=== PATIENT | male | born 1965 | race Caucasian/White ===

== ENCOUNTER 2017-08-31 13:06 | Emergency (ER) | payer OTHER ==
[~2017-08-31] VITALS: Ht 188 cm; Wt 70.0 kg
[2017-08-31 13:22] VITALS: BP 183/97; PULSE 54; RESP 18; TEMP 97.8; O2SAT 99
--- NOTE | 2017-08-31 13:23 | PD ---
HPI Chief Complaint: Right eye injury Time Seen by Provider: 13:18 Travel History International Travel<30 days: No Contact w/Intl Traveler<30days: No Traveled to known affect area: No History of Present Illness HPI The patient is a 52-year-old male who presents to the emergency department as a transfer from [facility] for an injury to the right eye. The patient states he accidentally received an injury to the right eye using a nail gun earlier today. The nail went through the lower lid, under his sunglasses, and struck his eye. The patient complains of difficulty with vision out of the right eye, states he can see light, but has difficulty seeing specific objects or details. The patient was seen at [facility] where he states he had a tetanus shot, antibiotics, and morphine. The patient was then transferred to [facility] to be evaluated by Dr. Newby, the suede cleaner. The patient denies any chronic medical problems, surgeries , medications, or allergies. He does smoke cigarettes. [facility] Past Medical History Medical History: Denies Significant Hx Past Surgical History Surgical History: No Previous Surgery Social History Tobacco Use: Yes Allergies-Medications (Allergen,Severity, Reaction): Coded Allergies: No Known Allergies (Unverified , 08/31/17) Review of Systems Except as stated in HPI: all other systems reviewed are Neg Eyes: Positive: Blurred Vision, Pain HENT: No: Headaches Cardiovascular: No: Chest Pain or Discomfort Respiratory: No: Shortness of Breath Gastrointestinal: No: Nausea, Abdominal Pain Neurologic: No: Weakness, Dizziness, Focal Abnormalities Physical Exam Narrative GENERAL: Awake, alert, pleasant 52-year-old male who appears his stated age and is in no acute respiratory distress. SKIN: Focused skin assessment warm/dry. HEAD: Atraumatic. Normocephalic. EYES: The right pupil slightly oblong, appears to slowly react to light. He states he can see light from the right eye, but cannot count fingers from the right eye. EOMs appear intact. He does have a small contusion and puncture wound to the inferior lid. ENT: No nasal bleeding or discharge. Mucous membranes pink and moist. NECK: Trachea midline. No JVD. CARDIOVASCULAR: Regular rate and rhythm. No murmur appreciated. RESPIRATORY: No accessory muscle use. Clear to auscultation. Breath sounds equal bilaterally. GASTROINTESTINAL: Abdomen soft, non-tender, nondistended. MUSCULOSKELETAL: No obvious deformities. No clubbing. No cyanosis. No edema. NEUROLOGICAL: Awake and alert. No obvious cranial nerve deficits. Motor grossly within normal limits. Normal speech. PSYCHIATRIC: Appropriate mood and affect; insight and judgment normal. Data Data Last Documented VS Vital Signs Date Time Temp Pulse Resp B/P (MAP) Pulse Ox O2 Delivery O2 Flow Rate FiO2 08/31/17 13:22 97.8 54 18 183/97 (125) 99 Orders Orders NPO (08/31/17 13:19) Complete Blood Count With Diff (08/31/17 13:19) Basic Metabolic Panel (Bmp) (08/31/17 13:19) Act Partial Throm Time (Ptt) (08/31/17 13:19) Prothrombin Time / Inr (Pt) (08/31/17 13:19) Sodium Chlor 0.9% 1000 Ml Inj (Ns 1000 M (08/31/17 13:30) Nicotine 21 Mg Patch.24 Hr (Habitrol 21 (08/31/17 13:30) Proparacaine 0.5% Opth Soln (Alcaine 0.5 (08/31/17 13:30) Electrocardiogram (08/31/17 ) Morphine Inj (Morphine Inj) (08/31/17 14:30) Cefazolin Inj (Ancef Inj) (08/31/17 17:18) Balanced Salt Opth Soln (Bss Opth Soln) (08/31/17 17:18) Dexamethasone Inj (Decadron Inj) (08/31/17 17:18) Tobramycin-Dexameth Opth Oint (Tobradex (08/31/17 17:18) Epinephrine (1:1000) Inj (Adrenalin (1:1 (08/31/17 17:19) Methylprednisolone So Succ Inj (Solumedr (08/31/17 17:20) Labs Laboratory Tests Test 08/31/17 13:30 White Blood Count 7.8 TH/MM3 Red Blood Count 4.77 MIL/MM3 Hemoglobin 13.2 GM/DL Hematocrit 39.9 % Mean Corpuscular Volume 83.7 FL Mean Corpuscular Hemoglobin 27.7 PG Mean Corpuscular Hemoglobin Concent 33.1 % Red Cell Distribution Width 14.2 % Platelet Count 236 TH/MM3 Mean Platelet Volume 6.6 FL Neutrophils (%) (Auto) 60.0 % Lymphocytes (%) (Auto) 28.3 % Monocytes (%) (Auto) 8.3 % Eosinophils (%) (Auto) 3.1 % Basophils (%) (Auto) 0.3 % Neutrophils # (Auto) 4.7 TH/MM3 Lymphocytes # (Auto) 2.2 TH/MM3 Monocytes # (Auto) 0.6 TH/MM3 Eosinophils # (Auto) 0.2 TH/MM3 Basophils # (Auto) 0.0 TH/MM3 CBC Comment DIFF FINAL Differential Comment Prothrombin Time 10.3 SEC Prothromb Time International Ratio 1.0 RATIO Activated Partial Thromboplast Time 24.6 SEC Blood Urea Nitrogen 21 MG/DL Creatinine 0.95 MG/DL Random Glucose 84 MG/DL Calcium Level 8.6 MG/DL Sodium Level 140 MEQ/L Potassium Level 4.2 MEQ/L Chloride Level 108 MEQ/L Carbon Dioxide Level 23.4 MEQ/L Anion Gap 9 MEQ/L Estimat Glomerular Filtration Rate 84 ML/MIN [facility] Medical Decision Making Medical Screen Exam Complete: Yes Emergency Medical Condition: Yes Medical Record Reviewed: Yes Interpretation(s) EKG reveals sinus bradycardia with a heart rate of 45. RSR prime in V1. Laboratory Tests Test 08/31/17 13:30 White Blood Count 7.8 TH/MM3 Red Blood Count 4.77 MIL/MM3 Hemoglobin 13.2 GM/DL Hematocrit 39.9 % Mean Corpuscular Volume 83.7 FL Mean Corpuscular Hemoglobin 27.7 PG Mean Corpuscular Hemoglobin Concent 33.1 % Red Cell Distribution Width 14.2 % Platelet Count 236 TH/MM3 Mean Platelet Volume 6.6 FL Neutrophils (%) (Auto) 60.0 % Lymphocytes (%) (Auto) 28.3 % Monocytes (%) (Auto) 8.3 % Eosinophils (%) (Auto) 3.1 % Basophils (%) (Auto) 0.3 % Neutrophils # (Auto) 4.7 TH/MM3 Lymphocytes # (Auto) 2.2 TH/MM3 Monocytes # (Auto) 0.6 TH/MM3 Eosinophils # (Auto) 0.2 TH/MM3 Basophils # (Auto) 0.0 TH/MM3 CBC Comment DIFF FINAL Differential Comment Prothrombin Time 10.3 SEC Prothromb Time International Ratio 1.0 RATIO Activated Partial Thromboplast Time 24.6 SEC Blood Urea Nitrogen 21 MG/DL Creatinine 0.95 MG/DL Random Glucose 84 MG/DL Calcium Level 8.6 MG/DL Sodium Level 140 MEQ/L Potassium Level 4.2 MEQ/L Chloride Level 108 MEQ/L Carbon Dioxide Level 23.4 MEQ/L Anion Gap 9 MEQ/L Estimat Glomerular Filtration Rate 84 ML/MIN Differential Diagnosis Differential diagnosis includes iritis, uveitis, ruptured globe, foreign body, intraocular injury, contusion. Narrative Course IV had already been established. The patient was monitored in the emergency department and placed on a NicoDerm patch per his request. The patient was kept n.p.o. and IV fluids were started. I discussed the patient with the suede cleaner, Dr. Newby, 1:25 PM who will evaluate the patient in the emergency department. We will attempt to obtain records from [facility] as there were no records with EMS upon the patient's arrival. I discussed the patient's with Juan José Chaudhary MD, who evaluated the patient at [facility]. He states the patient had a negative Yady's test. He states CT the brain was unremarkable. CT of the orbits did not reveal any obvious degrees, patient was noted to have sinusitis. Labs are unremarkable. Patient is medically cleared to be evaluated by ophthalmology for possible surgery later today. The patient was seen in the emergency department by Dr. Newby who dilated the patient's eye. There appears to be no globe injury, she will see the patient in the office on . She states the patient can be discharged home on pain medications. Advised to do no heavy lifting, follow-up on as directed, pain medications as directed. Diagnosis Primary Impression: Right eye injury Qualified Codes: S05.91XA - Unspecified injury of right eye and orbit, initial encounter Referrals: Gayla Newby MD 2 days Follow-up on as directed by Dr. Newby Additional Instructions: Pain medication as directed. Follow-up with Dr. Newby on as directed. Work excuse for today, Wednesday, and . Avoid rubbing or scratching the right eye. No heavy lifting. Med/Other Pt SpecificInfo: Prescription(s) given Scripts Hydrocodone-Acetaminophen ([place]) 5 Mg-325 Mg Tab 1 TAB PO Q6H Y for PAIN, #12 TAB 0 Refills Prov: Jorge Lacey MD 08/31/17 Disposition: 01 DISCHARGE HOME Condition: Stable Jorge Lacey MD Aug 31, 2017 13:23
[2017-08-31] MEDS ORDERED: PROPARACAINE HCL 0.5% OPHT SOLN 15 ML BTL RIGHT EYE ONE (13:30)
[2017-08-31] MEDS ORDERED: SODIUM CHLOR 0.9% 1000 ML INJ 1,000 ML IV SCH (13:30)
[2017-08-31] MEDS ORDERED: NICOTINE 21 MG/24 HR PATCH T-DERMAL ONE (13:30)
[2017-08-31 13:46] LABS: AUTOMATED NEUTROPHIL # 4.7 TH/MM3 (1.8-7.7); BASOPHIL % 0.3 % (0.0-2.0); EOSINOPHIL # 0.2 TH/MM3 (0-0.4); EOSINOPHIL % 3.1 % (0.0-4.0); HEMATOCRIT 39.9 % (39.0-51.0); HEMOGLOBIN 13.2 GM/DL (13.0-17.0); LYMPH % 28.3 % (9.0-44.0); LYMPHOCYTE # 2.2 TH/MM3 (1.0-4.8); MEAN CELL VOLUME 83.7 FL (80.0-100.0); MEAN CORPUSCULAR HEMOGLOBIN 27.7 PG (27.0-34.0); MEAN CORPUSCULAR HGB CONC 33.1 % (32.0-36.0); MEAN PLATELET VOLUME 6.6 FL (7.0-11.0); MONO % 8.3 % (0.0-8.0); MONOCYTE # 0.6 TH/MM3 (0-0.9); PLATELET COUNT 236 TH/MM3 (150-450); RED BLOOD COUNT 4.77 MIL/MM3 (4.50-5.90); RED CELL DISTRIBUTION WIDTH 14.2 % (11.6-17.2); WHITE BLOOD COUNT 7.8 TH/MM3 (4.0-11.0)
[2017-08-31 13:56] LABS: PROTHROMBIN TIME - PATIENT 10.3 SEC (9.8-11.6)
[2017-08-31 14:07] LABS: BICARBONATE 23.4 MEQ/L (21.0-32.0); CALCIUM 8.6 MG/DL (8.5-10.1); CREATININE 0.95 MG/DL (0.60-1.30)
[2017-08-31] MEDS ORDERED: MORPHINE SULFATE 4 MG/ML INJ IV PUSH ONE (14:30)
--- NOTE | 2017-08-31 16:44 | PD.CONS ---
History of Present Illness Service Ophthalmology Consult Requested By Reason for Consult right eye injury Primary Care Physician No Primary Care Physician Diagnoses: History of Present Illness 52 yo WM presenting to [place] as a transfer from [facility] for an injury to the right eye. The patient states he accidentally received an injury to the right eye using a nail gun earlier today. The nail ricocheted and went through the lower lid, under his sunglasses, and struck his eye. He states he had immediate pain and loss of vision. Currently he does not have any eye pain but he still has decreased vision - he can see shadows but has difficulty seeing specific objects or details. CT Head/Orbits done at [facility] were normal. No significant ocular history. Past Family Social History Allergies: Coded Allergies: No Known Allergies (Unverified , 08/31/17) Physical Exam Vital Signs Vital Signs Date Time Temp Pulse Resp B/P (MAP) Pulse Ox O2 Delivery O2 Flow Rate FiO2 08/31/17 13:22 97.8 54 18 183/97 (125) 99 Physical Exam Va sc at near OD 20/800, OS 20/25 EOM full OU, no diplopia CVF full OS, unable OD Pupils 2-1 no APD OU IOP 16, 14 mm Hg Anterior exam OD - lower eyelid 2mm laceration, small inferior NOHELIA, K clear, AC deep, pupil round, lens clear OS - normal eyelid, C/S W&Q, K clear, AC deep, pupil round, lens clear Dilated exam OD - ON s/p/f, ves normal, vit clear, retina flat OS - ON s/p/f, ves normal, vit clear, retina flat Laboratory Laboratory Tests Test 08/31/17 13:30 White Blood Count 7.8 Red Blood Count 4.77 Hemoglobin 13.2 Hematocrit 39.9 Mean Corpuscular Volume 83.7 Mean Corpuscular Hemoglobin 27.7 Mean Corpuscular Hemoglobin Concent 33.1 Red Cell Distribution Width 14.2 Platelet Count 236 Mean Platelet Volume 6.6 Neutrophils (%) (Auto) 60.0 Lymphocytes (%) (Auto) 28.3 Monocytes (%) (Auto) 8.3 Eosinophils (%) (Auto) 3.1 Basophils (%) (Auto) 0.3 Neutrophils # (Auto) 4.7 Lymphocytes # (Auto) 2.2 Monocytes # (Auto) 0.6 Eosinophils # (Auto) 0.2 Basophils # (Auto) 0.0 CBC Comment DIFF FINAL Differential Comment Prothrombin Time 10.3 Prothromb Time International Ratio 1.0 Activated Partial Thromboplast Time 24.6 Blood Urea Nitrogen 21 Creatinine 0.95 Random Glucose 84 Calcium Level 8.6 Sodium Level 140 Potassium Level 4.2 Chloride Level 108 Carbon Dioxide Level 23.4 Anion Gap 9 Estimat Glomerular Filtration Rate 84 Result Diagram: 08/31/17 1330 08/31/17 1330 Assessment and Plan Problem List: (1) Bradley's retinal edema ICD Codes: S05.8X9A - Other injuries of unspecified eye and orbit, initial encounter Plan: No ruptured globe on exam. Will need to be followed as an outpatient for further imaging and testing - 3:30pm. [address] Problem Qualifiers (1) Bradley's retinal edema: Gayla Newby MD Aug 31, 2017 16:44
[2017-08-31] MEDS ORDERED: TOBRAMYCIN/DEXAMETHASONE OPTH OINT 3.5 GM TUBE ONE (17:18)
[2017-08-31] MEDS ORDERED: DEXAMETHASONE SOD PHOS 4 MG/ML VIAL ONE (17:18)
[2017-08-31] MEDS ORDERED: ceFAZolin INJ 1,000 MG VIAL ONE (17:18)
[2017-08-31] MEDS ORDERED: BALANCED SALT SOLN OPHT IRRIG 15 ML BTL ONE (17:18)
[2017-08-31] MEDS ORDERED: EPINEPHrine HCL (1:1000) 1 MG/ML VIAL ONE (17:19)
[2017-08-31] MEDS ORDERED: methylPREDNISolone SOD SUCC 40 MG/1 ML VIAL ONE (17:20)
[2017-08-31] MEDS ORDERED: NORC5TAB PO (17:29)
--- NOTE | 2017-09-01 09:29 | EKG ---
Date Performed: 08/31/2017 Time Performed: 14:35:44 PTAGE: 52 years EKG: SINUS BRADYCARDIA POSSIBLE LEFT ATRIAL ENLARGEMENT POSSIBLE RIGHT VENTRICULAR CONDUCTION DE LAY BORDERLINE ECG INTERPRETATION BASED ON A DEFAULT AGE OF 40 YEARS NO PREVIOUS TRACING DOCTOR: Tang Macias Interpretating Date/Time 09/01/2017 09:27:59
== END 2017-08-31 18:03 | disposition home or self-care (01) ==
LOC: NEPC 13:06
DX: H35.81 Retinal edema (principal); F17.210 Nicotine dependence, cigarettes, uncomplicated; R00.1 Bradycardia, unspecified; S05.91XA Unspecified injury of right eye and orbit, initial encounter; W29.4XXA Contact with nail gun, initial encounter; R94.31 Abnormal electrocardiogram [ECG] [EKG]
CPT/HCPCS: 80048; 85025; 85610; 85730; 93005; 96374; 99284; J2270; J7030; J0171; J0690; J1100; J2920